=== PATIENT | male | born 1950 | race Caucasian/White ===

== ENCOUNTER 2017-03-05 08:27 | Inpatient (IN) | payer OTHER, BC ==
[~2017-03-05 08:27] MED LIST: CHLORHEXIDINE GLUC HIBICLENS 118 ML BTL TP ONE; ceFAZolin 2 GM/DEXTROSE 100 ML IV ONE
[2017-03-05] MEDS ORDERED: BACITRACIN 50,000 UNITS/10 ML SYR IRR ONE ×2 (08:31→12:55)
[2017-03-05] MEDS ORDERED: THROMBIN (BOVINE) 5,000 UNIT VIAL TP ONE (08:31)
[2017-03-05] MEDS ORDERED: BUPIVACAINE/EPI 0.5% 30 ML SDV ONE (08:31)
[2017-03-05] MEDS ORDERED: BUPIVACAINE/EPI 0.25% 30 ML SDV ONE ×2 (08:32→08:50)
[2017-03-05] MEDS ORDERED: LIDOCAINE 1% 2 ML INJ ONE (09:08)
[2017-03-05] MEDS ORDERED: CEFAZOLIN 2 GM/DEXTROSE/100 ML BAG IV ONE (09:14)
[2017-03-05] MEDS ORDERED: MIDAZOLAM 2 MG/2 ML VIAL ONE (09:26)
[2017-03-05] MEDS ORDERED: ONDANSETRON 4 MG/2 ML VIAL ONE (09:36)
[2017-03-05] MEDS ORDERED: ROCURONIUM 50 MG/5 ML VIAL ONE (09:36)
[2017-03-05] MEDS ORDERED: SUGAMMADEX SODIUM 200 MG/2 ML VIAL IVP ONE (09:36)
[2017-03-05] MEDS ORDERED: LIDOCAINE 2% 100 MG/5 ML SYR ONE (09:36)
[2017-03-05] MEDS ORDERED: DEXAMETHASONE 4 MG/ML VIAL ONE (09:36)
[2017-03-05] MEDS ORDERED: PROPOFOL 200 MG/20 ML VIAL ONE ×3 (09:37→14:11)
[2017-03-05] MEDS ORDERED: HYDROmorphONE/DILAUDID 2 MG/ML INJ ONE (09:37)
[2017-03-05] MEDS ORDERED: fentaNYL 100 MCG/2 ML INJ ONE ×2 (09:37→16:20)
[2017-03-05] MEDS ORDERED: PHENYLEPHRINE HCL 100 MCG/ML SYR ONE (09:53)
[2017-03-05] MEDS ORDERED: SURGIFLO MATRIX KIT WITH THROMBIN TP ONE (11:07)
[2017-03-05] MEDS ORDERED: LIDOCAINE 1% 5 ML SDV ID PRN (11:21)
[2017-03-05] MEDS ORDERED: LR 1,000 ML IV ONE (11:21)
[2017-03-05] MEDS ORDERED: PROPOFOL/EMULSION 500 MG/50 ML BOTTLE IV ONE (11:52)
[2017-03-05] MEDS ORDERED: MAGNESIUM HYDROXIDE 30 ML UDCUP PO PRN (11:56)
[2017-03-05] MEDS ORDERED: NALOXONE HCL 0.4 MG/ML INJ IVP PRN (11:56)
[2017-03-05] MEDS ORDERED: BISACODYL 10 MG SUPP PR PRN (11:56)
[2017-03-05] MEDS ORDERED: ONDANSETRON DISINTEGRATING 4 MG TAB PO PRN (11:56)
[2017-03-05] MEDS ORDERED: POLYETHYLENE GLYCOL 3350 17 GM PKT PO PRN (11:56)
[2017-03-05] MEDS ORDERED: LACTULOSE 20 GM/30 ML UDCUP PO PRN (11:56)
[2017-03-05] MEDS ORDERED: ONDANSETRON 4 MG/2 ML VIAL IVP PRN (11:56)
[2017-03-05] MEDS ORDERED: HYDROmorphONE/DILAUDID 1 MG/ML SYR IVP PRN (11:56)
[2017-03-05] MEDS ORDERED: DIAZEPAM 10 MG/2 ML SYR IVP PRN (11:56)
[2017-03-05] MEDS ORDERED: NALOXONE HCL 0.4 MG/ML INJ ONE (15:42)
--- NOTE | 2017-03-05 16:26 | SOAPPROG ---
SOAP Progress Note Assessment/Plan: Post Op Visit: S: Awake and alert. NAD. Pt with expected lower back pain O: AFVSS/PERRLA/EOMI no droop CN 2-12 grossly intact +lt touch 5/5 BUE/BLE = CDI A/P: 66 yo male that is s/p T10/11 and T11/12 laminectomy with durotomy -pt with expected lower back pain -pt to remain flat for 7 days -pt seen by Dr Naranjo as well -call with any questions or concerns -SDU for precedex as needed 03/05/17 16:21 ICD10 Worksheet Patient Problems: Problems Problem Status Onset Inadvertent durotomy Acute Thoracic spinal stenosis Acute Cervical radiculitis Acute Myelopathy Acute - ICD10 Problem Qualifiers (1) Thoracic spinal stenosis (2) Inadvertent durotomy
[2017-03-05] MEDS ORDERED: DEXMEDETOMIDINE HCL 400 MCG in NS 100 ML IV SCH (16:30)
[2017-03-05] MEDS ORDERED: HYDROmorphONE/DILAUDID 1 MG/ML SYR ONE (16:39)
[2017-03-05] MEDS: NS W/ 20 KCl/L 1,000 ML IV SCH ×2 (18:15→22:32)
[2017-03-05] MEDS: oxyCODONE IR 5 MG TAB PO PRN (18:19)
[2017-03-05] MEDS: METHOCARBAMOL 750 MG TAB PO PRN (18:23)
[2017-03-05] MEDS: DEXMEDETOMIDINE HCL 400 MCG in NS 100 ML IV SCH (22:32)
[2017-03-06 04:15] LABS: % IMMATURE GRANULYOCYTES 0.5 % (0.0-1.1); ABSOLUTE IMMATURE GRANULOCYTES 0.05 10^3/uL (0.00-0.10); ADD DIFF? NO; ADD MORPH? NO; ADD SCAN? NO; ATYPICAL LYMPHOCYTE FLAG 0 (0-99); FRAGMENT RBC FLAG 0 (0-99); HEMATOCRIT 38.7 % (40.0-51.0); HEMOGLOBIN 13.2 g/dL (13.7-17.5); LEFT SHIFT FLG 0 (0-99); LIPEMIA HEMOLYSIS FLAG 90 (0-99); MEAN CELL HEMOGLOBIN 30.3 pg (27.9-34.1); MEAN CELL HEMOGLOBIN CONCENTR. 34.1 g/dL (32.4-36.7); MEAN PLATELET VOLUME 10.7 fL (8.7-11.7); PLATELET CLUMPS FLAG 0 (0-99); PLATELET COUNT 186 10^3/uL (150-400); RED BLOOD CELL COUNT 4.35 10^6/uL (4.40-6.38); RED CELL DISTRIBUTION WIDTH 13.6 % (11.5-15.2)
[2017-03-06] MEDS: oxyCODONE IR 5 MG TAB PO PRN ×3 (04:37→11:50)
[2017-03-06 04:44] LABS: ANION GAP 6 mEq/L (8-16); CALCIUM 8.1 mg/dL (8.5-10.4); CARBON DIOXIDE 23 mEq/l (22-31); CHLORIDE 107 mEq/L (97-110); CREATININE 1.1 mg/dL (0.7-1.3); GLOMERULAR FILTRATION RATE > 60; GLUCOSE 113 mg/dL (70-100); POTASSIUM 5.1 mEq/L (3.5-5.2); SODIUM 136 mEq/L (134-144)
[2017-03-06] MEDS: DEXMEDETOMIDINE HCL 400 MCG in NS 100 ML IV SCH (05:00)
[2017-03-06] MEDS: ATENOLOL 100 MG TAB PO SCH ×2 (05:13→20:43)
[2017-03-06] MEDS: amLODIPine BESYLATE 5 MG TAB PO SCH ×2 (05:14→20:31)
[2017-03-06] MEDS: LISINOPRIL 40 MG TAB PO SCH ×2 (05:15→20:31)
[2017-03-06] MEDS: morphINE SR 15 MG TAB PO SCH ×3 (05:15→20:31)
[2017-03-06] MEDS: SENNOSIDES/DOCUSATE SODIUM TAB PO SCH ×3 (05:16→20:31)
[2017-03-06] MEDS: FAMOTIDINE 20 MG/NACL 50 ML IV SCH ×3 (05:16→20:32)
--- NOTE | 2017-03-06 05:47 | GOP ---
[f rep st] OPERATIVE REPORT DATE OF OPERATION: 03/05/2017 SURGEON: Kelly Naranjo MD NEUROSURGEON: Kelly Naranjo MD PARAPROFESSIONAL AIDE TEACHER: Ryan Magana PA-C PREOPERATIVE DIAGNOSIS: Multilevel lumbar and thoracic stenosis, left lower extremity pain, multile wilfredo lumbar stenosis, severe thoracic stenosis T10-11 and T11-T12 with cord compression, questionable myelomalacia, central spinal stenosis L3-4, collapse of the neural foramen L5-S1. POSTOPERATIVE DIAGNOSIS: Multilevel lumbar and thoracic stenosis, left lower extremity pain, multil evel lumbar stenosis, severe thoracic stenosis T10-11 and T11-T12 with cord compression, questionabl e myelomalacia, central spinal stenosis L3-4, collapse of the neural foramen L5-S1. PROCEDURE PERFORMED: T10-11, T11-12 laminectomy with complete removal of the lamina at each level w ith resection of dura and duraplasty at both levels, microscope. FINDINGS: ESTIMATED BLOOD LOSS: 250 cc. INDICATIONS: The patient is a 66-year-old gentleman with a prior history of an ACDF at C5-6, C6-7 b y another surgeon, and I did an adjacent segment fusion at C4-5. He presented to my office with com plaints of terrible left leg pain in L5 distribution, but he had findings throughout the lumbar spin e. He had severe stenosis at L5-S1 that could necessitate a fusion to correct. He had central sten osis at L3-4, and I thought this too needed correction, although the most impressive finding was sev ere stenosis at T11-T12 due to very large hypertrophic facet joints at that level. Another MRI was done, and it demonstrated adjacent segment severe stenosis at T10-11. He also had an area of stenos is in the upper thoracic spine. It is my surgical intent originally to do a T11-T12 and an L3-4 yudith nosis operation. My intent was to do both today. However, the new MRI was done, and because of thi s finding, I elected to include the T10-11 level. It is my intent to do both T10-11 and T11-12, as well as L3-L4, and I have discussed this with the patient's . The patient went to the operating room expecting just a T11-T12 and L3-L4 decompression. The risks of surgery including risk of CSF leak, nerve injury, continued symptoms, and possible need for additional spine surgery, including surgery at the L5-S1 level to correct the severe foraminal disease at that level was discussed. He knew that he had multilevel disease of the spine, and I was somewhat concerned that multiple levels could be contributing to his problem, but he also understoo d the importance of the thoracic stenosis and the threatening nature of this for the spinal cord, an d I thought this needed to be done. He wanted to proceed despite these risks. DESCRIPTION OF PROCEDURE: The patient was taken to the operating room, placed in the supine positio n. General anesthesia was begun. He was flipped prone on the Charan frame. Care was taken to pad all points of contact. His back was sterilely prepped and draped in the usual fashion. Localizing x-rays were taken with 4 spinal needles. We counted twice successfully up to the T10-T11 and T11-T1 2 level from the sacrum. We elected to begin the surgery there. We then anesthetized the paraspina l muscles with 0.25% Marcaine with epinephrine. He had already been sterilely prepped and draped. I made a midline incision that was about 3 cm in length above the T11 spinous process. We exposed T 10-11 and T11-12. A localizing x-ray was taken. We were in good position. We removed the T11 spin ous process and the inferior T10 spinous process, and attempted to perform an en bloc resection of t he T11 lamina. We were drilling laterally down and creating gutters on both sides. On the patient' s right-hand side, a small durotomy was created with the drill as we were drilling the bone. This w as certainly unusual. We elected to abandon that, and the operating microscope was introduced, and I increased our exposure the and went down below the lamina and opened ligamentum flavum there under the microscope and began working my way rostrally. I could not get underneath the lamina of T11, i t was completely adherent to the dura, particularly out laterally where the hypertrophic facets were . I then went to the left-hand side where I enlarged the laminotomy at T11-12 and then came to the ros tral lip of T11 and began thinning this out and then took a curette and simply tried to fracture rylan e of this central bone away from the dura, and indeed, the dura was attached to the T11 bone. It wa s part of the bone itself. There was no separate layer. This caused us to change course completely . I then enlarged the incision and went to a 6 cm incision, exposing T10-11 and T11-12 rather widel y. I went down to T12 and removed the rostral lip of T12, encountered normal dura there, and then virginia friedman working my way up in the lateral gutters bilaterally toward its the hypotrophic 11-12 facet wiley nts, and indeed laterally, the dura was completely adherent to the T11-12 facet joint complex. I di d likewise at the T10-11 interspace, where I began at the rostral T11 margin and worked my way up to the T10-11 facets, and I found exactly the same thing. On the right-hand side at T10-11, I drilled very widely, and I was able to decompress very lateral t o the thecal sac out in the facet joint itself and work my way up to the T10 pedicle and got around the area of the constriction. After I had freed laterally, I was able to take this bone and I mayda oliveros was able to successfully peel it away from the dura on the right-hand side. On the left-hand si de, I did likewise with a similar tactic at T10-11 where I worked lateral to the thecal sac, drilled out the bone and the facet joint itself, and developed a lateral breaking the bone all the way from the T11 pedicle up to the T10 pedicle. Here, however, the bone was completely adherent to the dura , all the way from the very lateral dura all the way to the midline bone. It was physically part of the dura. Even with a curette trying to separate it from the dura, this could not be done. I elected, therefore, to resect the bone with the dura in this location. I had a good lateral ana n, and I used a curette and created actually a hole in the dura with a curette and then peeled the b one and the dura off in 1 piece. This left a defect in the dura that was about 8 mm x 2 cm long, an d I repaired this with a piece of Synthecel graft. It was sutured in place. This additional suturi ng and duraplasty took 45 minutes to complete, and additional decompression time was additional 15 m inutes. This added 1 hour of time to a normally expected 1 hour time of a laminectomy at T10-11. The T11-T12 level was worse, and I went down to this level and on the right-hand side again, I drill ed very widely and began creating a fracture of the hypertrophic facet away from its bony attachment s, and I was able to successfully do this. Here, absolutely no plane could be developed between the dura and this large bone, and I simply took a pair of scissors and cut the dura cleanly to make it easier to suture, and I cut it circumferentially around this large hypertrophic facet. This left a very far lateral dural defect at T11-12. The exiting T11 nerve root was identified, and there was e nough dura to sew to just above the nerve sleeve. On the left-hand side, the problem was even worse at T11-12 where I cleared out laterally flush with the T11 and T12 pedicle, worked my way up latera lly to the T11 root. Here, there was a defect of the nerve root sleeve for the exiting T11 nerve ro ot, but here too, this was physically adherent to the dura. I even called my partner, Dr. Lexx davis, in an adjacent operating room to come look, and he could see that, indeed, the dura and the facet joints were a single unit here, there was no plane to be developed between the two. If the stenosi s were to be alleviated, we simply had to resect these, so I did likewise here. I cut the dura with scissors and removed the large hypertrophic facet off the spinal cord itself and got an excellent d ecompression, but now I was left with a very large complex dural defect, measuring about 2 cm across when one included the curvature of the dura and about 2.5 cm long. I cut a Synthecel graft. I ini tially mobilized some normal [place] dura and reconstructed the nerve root sleeve for the exiting T11 nerve root on the left-hand side and got a good closure of this with [place] dura above the 11 root. The itself and the arachnoid above the was intact, but I simply reconstructed the nerve root sleeve on the left-hand side. This solved 1 of my topological problems of my graft and allowed me to pick a relatively simple vito t shape that I did cut to fit, and I began suturing this inferiorly. There was a midline durotomy o r defect in the midline dura down at T12 level, and this was sutured in a straight fashion down the midline and then I began at that T12 level suture in my graft, and I worked my way up along the righ t-hand side of the canal and then across the dura rostrally at T11 and then down towards the nerve r oot sleeves of the T11 nerve root and laterally down the lateral gutter back to the beginning of the graft at T12. We performed Valsalva, and it was a relatively watertight closure, but was not perfe ctly watertight. There were just trace amounts of CSF leaking, and we were very happy with this rep air. There was s absolutely no leaking at any time during the surgery in absence of a Valsalva ant use the arachnoid itself had been preserved as we had resected the dura. The spinal cord and the ne rve roots were covered in arachnoid, and they, themselves, were not totally exposed. I then irrigated with antibiotic saline solution and concluded the procedure. I elected to abandon the L3-L4 procedure. If I had encountered this problem at that level, almost certainly to go that w cleo at L3-4 would require spinal fusion, and this is not something that neither nor the patient was prepared to proceed with. We corrected the severe thoracic stenosis, got a good dural repair, and t he case had taken several hours longer than expected. He was then reversed from anesthesia, flipped onto the hospital bed, extubated, and transferred to recovery room in stable condition. There were no complications. COMPLICATIONS: None. /[id number]/MODL
--- NOTE | 2017-03-06 08:51 | NEUSURGPN ---
Date of Surgery: 03/05/17 Post Op Day: 1 Assessment/Plan: Assessment: 66 year old male, S/P T10-11, T11-12 laminectomy with durotomy repair. Plan: -Patient was to get a L3-4 laminectomy as well but was delayed due to CSF leak -HOB flat for 7 days (03/12) -Precedex and REFRIGERATING TECHNICIAN ordered if needed on SDU. Currently on Precedex -PT/OT ordered but on hold due patient laying flat -Will discuss with Dr Naranjo if can start Lovenox sooner -warning signs given -Pt seen by Dr Naranjo as well -call with any questions or concerns Subjective: No new complaints or concerns. Pt with expected lower T spine. No grace/neck/ chest/abd or gu complaints. No f/c/n/v/d. Objective: AAO x 3 PERRLA FLOWER x 4 5/5 BLE CDI Neuro Check Frequency: per routine Urinary Catheter in Place: Yes Urinary Catheter Indication: Other (Use Comment) (Pt needs to lay flat for 7 days) Catheter Insertion Date: 03/05/17 - Physician Discussed Patient with DrBlas: Jose A Patient Seen by : Jose A Neurosurgery Physical Exam - Vitals, I&O, Labs I and O 03/05/17 03/06/17 03/07/17 05:59 05:59 05:59 Intake Total 2980 Output Total 600 Balance 2380 Weight 85.72 kg Intake: Oral (ml) 300 IV Intake (ml) 1950 IV Infused (ml) 730 Dexmedetomidine HCl 400 110 mcg In Ns 100 ml @ Per Protocol IV CONT AYESHA Rx#: [id number] NS W/ 20 KCl/L 1,000 ml @ 595 75 mls/hr IV CONT AYESHA Rx #:[id number] ceFAZolin 1 GM/DEXTROSE 25 50 ml @ 200 mls/hr IV Q8H AYESHA Rx#:[id number] Output: Urine (ml) 500 Catheter 500 Estimated Blood Loss (ml) 100 Vital Signs Temp Pulse Resp BP Pulse Ox 36.8 C 72 20 105/50 L 97 03/06/17 04:00 03/06/17 04:00 03/06/17 04:00 03/06/17 04:00 03/06/17 04:00 Laboratory Results 03/06/17 04:00 03/06/17 04:00 ICD10 Worksheet Patient Problems: Problems Problem Status Onset Inadvertent durotomy Acute Thoracic spinal stenosis Acute Cervical radiculitis Acute Myelopathy Acute
[2017-03-06] MEDS: NS W/ 20 KCl/L 1,000 ML IV SCH (11:42)
[2017-03-06] MEDS: METHOCARBAMOL 750 MG TAB PO PRN (16:14)
[2017-03-06] MEDS: HYDROmorphONE/DILAUDID 6 MG/30 ML PCA IV PRN (19:20)
[2017-03-07] MEDS: NS W/ 20 KCl/L 1,000 ML IV SCH ×2 (00:26→14:09)
--- NOTE | 2017-03-07 07:33 | NEUSURGPN ---
Date of Surgery: 03/05/17 Post Op Day: 2 Assessment/Plan: Assessment: 66 year old male, S/P T10-11, T11-12 laminectomy with durotomy repair. Plan: -Patient was to get a L3-4 laminectomy as well but was delayed due to CSF leak -HOB flat for 7 days (03/12) -Precedex and ASSURANCE MANAGER ordered if needed on SDU. Currently using ASSURANCE MANAGER -PT/OT ordered but on hold due patient laying flat -Will start lovenox this AM -warning signs given -Pt seen by Dr Naranjo as well -call with any questions or concerns -Patient with GERD this AM, will add PPI and tums -Discussed with RN re: continuing with Precedex for anxiety and sedation while laying flat Subjective: Patient with GERD this Am, had difficulty with sleep last PM. No HENSON, SOB. Discussed with HOME ENERGY RATER restarting Precedex for anxiety/sedation while laying flat. Objective: AAO x 3 PERRLA FLOWER x 4 5/5 BLE CDI Neuro Check Frequency: per routine Urinary Catheter in Place: No Catheter Insertion Date: 03/05/17 - Physician Discussed Patient with : Jose A Patient Seen by : Jose A Neurosurgery Physical Exam - Vitals, I&O, Labs I and O 03/06/17 03/07/17 03/08/17 05:59 05:59 05:59 Intake Total 2980 1714 Output Total 600 1450 Balance 2380 264 Weight 85.72 kg Intake: Oral (ml) 300 IV Intake (ml) 1950 IV Infused (ml) 730 1714 Dexmedetomidine HCl 400 110 mcg In Ns 100 ml @ Per Protocol IV CONT AYESHA Rx#: [id number] NS W/ 20 KCl/L 1,000 ml @ 595 1664 75 mls/hr IV CONT AYESHA Rx #:[id number] ceFAZolin 1 GM/DEXTROSE 25 50 50 ml @ 200 mls/hr IV Q8H AYESHA Rx#:[id number] Output: Urine (ml) 500 1450 Catheter 500 1450 Estimated Blood Loss (ml) 100 Other: Intake Quantity Yes Sufficient Output Comment Catheter condom cath Vital Signs Temp Pulse Resp BP Pulse Ox 36.8 C 70 16 125/81 H 98 03/07/17 06:00 03/07/17 06:00 03/07/17 06:00 03/07/17 06:00 03/07/17 06:00 Laboratory Results 03/06/17 04:00 03/06/17 04:00 ICD10 Worksheet Patient Problems: Problems Problem Status Onset Inadvertent durotomy Acute Thoracic spinal stenosis Acute Cervical radiculitis Acute Myelopathy Acute
[2017-03-07] MEDS: ENOXAPARIN 40 MG/0.4 ML SYR SC SCH (09:25)
[2017-03-07] MEDS: PANTOPRAZOLE SODIUM 40 MG TAB PO SCH (09:25)
[2017-03-07] MEDS: FAMOTIDINE 20 MG/NACL 50 ML IV SCH (09:25)
[2017-03-07] MEDS: morphINE SR 15 MG TAB PO SCH ×2 (09:25→21:59)
[2017-03-07] MEDS: SENNOSIDES/DOCUSATE SODIUM TAB PO SCH ×2 (09:26→21:59)
--- NOTE | 2017-03-07 13:36 | GCON ---
[f rep st] CONSULTATION CRITICAL CARE CONSULTATION. DATE OF CONSULTATION: 03/07/2017 REASON FOR CONSULTATION: Intensive care unit evaluation and medical management following lumbar spi ne surgery. HISTORY: The patient is a 66-year-old with a history of previous cervical spinal surgery. He prese nted with lumbar and thoracic stenosis and radiating lower extremity pain. He had a thoracic eve ctomy with resection of the dura and duraplasty at T10/11 and T11/12. The lumbar spinal stenosis wa s not addressed with this surgery. Secondary to the dural tear he was returned to the intensive car e unit on Precedex. He is to remain flat on his back for 7 days. No drains or epidural catheters a re in place. Postoperatively, he has no complaints other than expected pain and constipation. He is having no pr oblems with his respiratory status. There is no history of heart disease. PAST MEDICAL HISTORY: Remarkable for systemic hypertension for which he takes Norvasc, lisinopril, and Tenormin. PAST SURGICAL HISTORY: Includes cervical spine surgery x2, once approximately 20 years ago and here in 2014. DRUG ALLERGIES: Hydrocodone. SOCIAL HISTORY: The patient is . He is a former smoker. Significant alcohol is denied. FAMILY HISTORY: Noncontributory. REVIEW OF SYSTEMS: Negative for underlying heart or lung disease, kidney disease, diabetes, hypothy roidism, thromboembolic disease, or other issues. PHYSICAL EXAMINATION: GENERAL: Reveals a pleasant gentleman who is slightly somnolent secondary to Precedex and pain medications. VITAL SIGNS: Blood pressure is 110/54, heart rate 67, respiratory rate 16. On 4 L saturations are 98%. He is afebrile. HEENT: Unremarkable for lymphadenopathy or thyromegaly. Mucous membranes are somewhat dry. There is no obvious jugular venous distention, no stridor. CHEST: Clear. Breath sounds are diminished at the bases. HEART: Regular in rate and rh ythm. There is a soft systolic murmur, no gallops. ABDOMEN: Somewhat distended but nontender. Shaw wel sounds are present but diminished. EXTREMITIES: Unremarkable for edema, cords, or tenderness. BACK: The back and his incision site were not examined. NEUROLOGIC: Nonfocal/intact. DATABASE: White blood cell count 11,000, hematocrit 38, platelets 186,000. Basic metabolic panel s howed a sodium of 136, potassium 5.1, BUN 24, with a creatinine of 1.1. Glucose is 113, calcium 8. 1. ASSESSMENT: 1. Status post thoracic spine surgery for spinal stenosis. 2. Dural tear/durotomy. 3. History of systemic hypertension. 4. Postoperative pain. 5. Aspiration risk. This is secondary to needing to eat flat on his back. He is having no problem s handling food or fluids at this time, but apparently does have a history of mild dysphagia. Speec h therapy is making recommendations. 6. Constipation. PLAN AND RECOMMENDATIONS: The patient will be kept in the intensive care unit. Precedex will be co ntinued as it seems to be of significant benefit. Pain control and anxiolytics will be used as nee ded. Pathology will be awaited. Laboratory will be followed. Bowel protocol will be maintained. Further plans and recommendations will be made based on his progress over the next 12-24 hours. /[id number]/MODL
[2017-03-07] MEDS: DEXMEDETOMIDINE HCL 400 MCG in NS 100 ML IV SCH (22:00)
[2017-03-07] MEDS: amLODIPine BESYLATE 5 MG TAB PO SCH (22:02)
[2017-03-07] MEDS: LISINOPRIL 40 MG TAB PO SCH (22:02)
[2017-03-07] MEDS: ATENOLOL 100 MG TAB PO SCH (22:02)
[2017-03-08] MEDS: HYDROmorphONE/DILAUDID 6 MG/30 ML PCA IV PRN (00:20)
[2017-03-08] MEDS: DEXMEDETOMIDINE HCL 400 MCG in NS 100 ML IV SCH ×3 (05:34→21:24)
[2017-03-08] MEDS: NS W/ 20 KCl/L 1,000 ML IV SCH (05:35)
[2017-03-08] MEDS: diphenhydrAMINE 25 MG CAP PO PRN (06:25)
[2017-03-08] MEDS ORDERED: ENOXAPARIN 40 MG/0.4 ML SYR SC SCH (09:00)
--- NOTE | 2017-03-08 09:10 | NEUSURGPN ---
Date of Surgery: 03/05/17 Post Op Day: 3 Assessment/Plan: Assessment: 66 year old male, S/P T10-11, T11-12 laminectomy with durotomy repair. Plan: -Patient was to get a L3-4 laminectomy as well but was delayed due to CSF leak -HOB flat for 5-7 days (03/10-03/12) -Precedex and SHOT PEEN OPERATOR ordered if needed on SDU. Currently using SHOT PEEN OPERATOR -PT/OT ordered but on hold due patient laying flat -Lovenox started 03/07 -warning signs given -Pt seen by Dr Naranjo as well -call with any questions or concerns -Discussed with RN re: continuing with Precedex for anxiety and sedation while laying flat Subjective: No new complaints per RN. Patient stable. Objective: AAO x 3 PERRLA FLOWER x 4 5/5 BLE CDI Neuro Check Frequency: per routine Urinary Catheter in Place: Yes Urinary Catheter Indication: Other (Use Comment) (patient laying flat, bedrest) Catheter Insertion Date: 03/05/17 - Physician Discussed Patient with : Jose A Patient Seen by : Jose A Neurosurgery Physical Exam - Vitals, I&O, Labs I and O 03/07/17 03/08/17 03/09/17 05:59 05:59 05:59 Intake Total 1714 3692 Output Total 1450 1600 Balance 264 2092 Intake: Oral (ml) 1560 IV Infused (ml) 1714 2132 Dexmedetomidine HCl 400 282 mcg In Ns 100 ml @ Per Protocol IV CONT AYESHA Rx#: [id number] NS W/ 20 KCl/L 1,000 ml @ 1664 1850 75 mls/hr IV CONT AYESHA Rx #:[id number] ceFAZolin 1 GM/DEXTROSE 50 50 ml @ 200 mls/hr IV Q8H AYESHA Rx#:[id number] Output: Urine (ml) 1450 1600 Catheter 1450 1600 Other: Intake Quantity Yes Sufficient Output Comment Catheter condom cath Vital Signs Temp Pulse Resp BP Pulse Ox 36.9 C 72 16 110/59 L 94 03/08/17 07:57 03/08/17 07:57 03/08/17 07:57 03/08/17 07:57 03/08/17 07:57 Laboratory Results 03/06/17 04:00 03/06/17 04:00 ICD10 Worksheet Patient Problems: Problems Problem Status Onset Inadvertent durotomy Acute Thoracic spinal stenosis Acute Cervical radiculitis Acute Myelopathy Acute
[2017-03-08] MEDS: ENOXAPARIN 40 MG/0.4 ML SYR SC SCH (09:54)
[2017-03-08] MEDS: PANTOPRAZOLE SODIUM 40 MG TAB PO SCH (09:54)
[2017-03-08] MEDS: morphINE SR 15 MG TAB PO SCH ×2 (09:54→21:14)
[2017-03-08] MEDS: SENNOSIDES/DOCUSATE SODIUM TAB PO SCH ×2 (09:55→21:14)
--- NOTE | 2017-03-08 13:18 | PDINTPN ---
Medical Billing Assistant Progress Note Assessment/Plan: Assessment: Status post thoracic spine surgery with dural tear. Strict bed rest... Doing okay, but generally uncomfortable. On Precedex and TRUCK BRACER. Per Neurosurgery. Nutrition: Eating, but not hungry at this point. No evidence of aspiration clinically. Systemic hypertension. On home medications with good control blood pressure. Constipation: On bowel protocol but nothing yet. Will try lactulose which is on his Mar. DVT prophylaxis: Lovenox Plan: Continue care in the intensive care unit. Continue Precedex and TRUCK BRACER. Encourage oral intake. Continue other medications. Continue to work on constipation. Lactulose today. Subjective: Miserable secondary to bed rest. Pain: some as expected, but appropriately controlled. Denies aspiration, but not hungry, not eating much. No bowel movement yet. Objective: Vital Signs Temp Pulse Resp BP Pulse Ox 36.9 C 82 18 119/67 88 L 03/08/17 07:57 03/08/17 12:08 03/08/17 12:08 03/08/17 12:08 03/08/17 12:08 Laboratory Results 03/06/17 04:00 03/06/17 04:00 03/07/17 03/08/17 03/09/17 05:59 05:59 05:59 Intake Total 1714 3692 Output Total 1450 1600 500 Balance 264 2092 -500 Physical Exam - Physical Exam General Appearance: other (Appears uncomfortable. Lightly sedated. Appropriate , arousable and responsive.) EENT: PERRL/EOMI, other (Nasal cannula at 3 L) Neck: normal inspection Respiratory: lungs clear (Anteriorly), decreased breath sounds (At bases), No rales, No rhonchi Cardiac/Chest: regular rate, rhythm Abdomen: distended, No normal bowel sounds (Decreased bowel sounds, present), No non-tender (Mild tenderness) Male Genitalia: other (Condom catheter in place) Skin: normal color, warm/dry Extremities: No pedal edema Neuro/Psych: no motor/sensory deficits, No cognition abnormalities ICD10 Worksheet Patient Problems: Problems Problem Status Onset Cervical radiculitis Acute Myelopathy Acute Thoracic spinal stenosis Acute Inadvertent durotomy Acute
[2017-03-08] MEDS: ACETAMINOPHEN 325 MG TAB PO PRN (21:14)
[2017-03-08] MEDS: ATENOLOL 100 MG TAB PO SCH (21:14)
[2017-03-08] MEDS: LISINOPRIL 40 MG TAB PO SCH ×2 (21:14→22:43)
[2017-03-08] MEDS: amLODIPine BESYLATE 5 MG TAB PO SCH ×2 (21:15→22:43)
[2017-03-08] MEDS: METHOCARBAMOL 750 MG TAB PO PRN (21:23)
[2017-03-09] MEDS: ACETAMINOPHEN 325 MG TAB PO PRN (02:46)
[2017-03-09] MEDS: diphenhydrAMINE 25 MG CAP PO PRN (02:47)
[2017-03-09] MEDS: DEXMEDETOMIDINE HCL 400 MCG in NS 100 ML IV SCH ×2 (03:27→06:08)
[2017-03-09] MEDS: DIAZEPAM 5 MG TAB PO PRN ×4 (06:08→23:56)
[2017-03-09] MEDS: NS W/ 20 KCl/L 1,000 ML IV SCH (06:09)
--- NOTE | 2017-03-09 09:28 | NEUSURGPN ---
Date of Surgery: 03/05/17 Post Op Day: 4 Assessment/Plan: Assessment: 66 year old male, S/P T10-11, T11-12 laminectomy with durotomy repair. Plan: -Patient was to get a L3-4 laminectomy as well but was delayed due to CSF leak -Begin to raise HOB 10 degress Q1hour until 50 degrees, then oob to chair if tolerated with no headaches -Wean off Precedex Currently using PHOTOENGRAVING PROOFER -If off Precedex and tolerating OOB, may transfer to floor later today -PT/OT ordered -Lovenox started 03/07 -warning signs given -call with any questions or concerns Subjective: Patient uncomfortable due to laying flat. Disoriented per night RN. Not much of an appetite but is passing gas. Patient has back pain, no leg pain. Objective: AAO x 3 PERRLA FLOWER x 4 5/5 BLE CDI Neuro Check Frequency: per routine Urinary Catheter in Place: No Catheter Insertion Date: 03/05/17 - Physician Discussed Patient with : Jose A (Dicussed advancing activity with Dr Naranjo) Neurosurgery Physical Exam - Vitals, I&O, Labs I and O 03/08/17 03/09/17 03/10/17 05:59 05:59 05:59 Intake Total 3692 4103 Output Total 1600 4450 Balance 2092 -347 Intake: Oral (ml) 1560 2000 IV Infused (ml) 2132 2103 Dexmedetomidine HCl 400 282 346 mcg In Ns 100 ml @ Per Protocol IV CONT AYESHA Rx#: [id number] NS W/ 20 KCl/L 1,000 ml @ 1850 1757 75 mls/hr IV CONT AYESHA Rx #:[id number] Output: Urine (ml) 1600 4450 Catheter 1600 4450 Vital Signs Temp Pulse Resp BP Pulse Ox 36.7 C 72 20 98/57 L 93 03/09/17 04:00 03/09/17 06:00 03/09/17 06:00 03/09/17 06:00 03/09/17 06:00 Laboratory Results 03/06/17 04:00 03/06/17 04:00 ICD10 Worksheet Patient Problems: Problems Problem Status Onset Inadvertent durotomy Acute Thoracic spinal stenosis Acute Cervical radiculitis Acute Myelopathy Acute
[2017-03-09] MEDS: morphINE SR 15 MG TAB PO SCH ×2 (10:20→20:43)
[2017-03-09] MEDS: SENNOSIDES/DOCUSATE SODIUM TAB PO SCH ×3 (10:20→20:43)
[2017-03-09] MEDS: PANTOPRAZOLE SODIUM 40 MG TAB PO SCH (10:21)
[2017-03-09] MEDS: oxyCODONE IR 5 MG TAB PO PRN ×3 (10:21→17:14)
[2017-03-09] MEDS: METHOCARBAMOL 750 MG TAB PO PRN (10:21)
[2017-03-09] MEDS: ENOXAPARIN 40 MG/0.4 ML SYR SC SCH (10:21)
--- NOTE | 2017-03-09 12:46 | PDINTPN ---
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 Strict bed rest has ended. Progressive elevation of head of bed ordered and up to chair later if tolerated, per Neurosurgery. Nutrition: Eating. No evidence of aspiration clinically. Systemic hypertension. On home medications with good control blood pressure. Constipation: On bowel protocol, will continue. Positive BM. DVT prophylaxis: Lovenox Plan: Continue care in the intensive care unit. D/C Precedex and TELETYPESETTER. Encourage oral intake. Continue other medications. Recheck laboratory values tomorrow. Subjective: Some confusion earlier today but much better off medications. Now able to start to sit up gradually. Patient feels better overall. Not a lot of pain. Objective: Vital Signs Temp Pulse Resp BP Pulse Ox 37.1 C 86 19 136/65 H 96 03/09/17 11:51 03/09/17 11:51 03/09/17 11:51 03/09/17 11:51 03/09/17 11:51 Laboratory Results 03/06/17 04:00 03/06/17 04:00 03/08/17 03/09/17 03/10/17 05:59 05:59 05:59 Intake Total 3692 4103 Output Total 1600 1440 650 Balance 3829 -393 -746 Physical Exam - Physical Exam General Appearance: other (Mildly sedated, arousable, responsive, appropriate) EENT: PERRL/EOMI, other (Nasal cannula at 2 L) Neck: normal inspection Respiratory: lungs clear, decreased breath sounds Cardiac/Chest: regular rate, rhythm Abdomen: normal bowel sounds, non-tender, soft, No distended (Distension resolved. Positive BM) Male Genitalia: other (Manley catheter in place. Hopefully out tomorrow) Skin: normal color, warm/dry Extremities: No pedal edema Neuro/Psych: no motor/sensory deficits, No cognition abnormalities ICD10 Worksheet Patient Problems: Problems Problem Status Onset Cervical radiculitis Acute Myelopathy Acute Thoracic spinal stenosis Acute Inadvertent durotomy Acute
--- NOTE | 2017-03-09 16:22 | CPEKG ---
Heart Rate: 133 RR Interval: 451 P-R Interval: 148 QRSD Interval: 90 QT Interval: 312 QTC Interval: 465 P [place]: 68 QRS [place]: -4 T Wave [place]: 50 EKG Severity - BORDERLINE ECG - EKG Impression: SINUS TACHYCARDIA EKG Impression: PROBABLE LEFT ATRIAL ABNORMALITY Electronically Signed By: Diego Cruz 09-Mar-2017 16:41:18
[2017-03-09] MEDS ORDERED: METOPROLOL TARTRATE 5 MG/5 ML INJ IVP ONE (16:30)
[2017-03-09 18:25] LABS: % IMMATURE GRANULYOCYTES 0.4 % (0.0-1.1); ABSOLUTE IMMATURE GRANULOCYTES 0.05 10^3/uL (0.00-0.10); ADD DIFF? NO; ADD MORPH? NO; ADD SCAN? NO; ATYPICAL LYMPHOCYTE FLAG 0 (0-99); FRAGMENT RBC FLAG 0 (0-99); HEMATOCRIT 39.3 % (40.0-51.0); HEMOGLOBIN 14.1 g/dL (13.7-17.5); LEFT SHIFT FLG 10 (0-99); LIPEMIA HEMOLYSIS FLAG 90 (0-99); MEAN CELL HEMOGLOBIN 30.5 pg (27.9-34.1); MEAN CELL HEMOGLOBIN CONCENTR. 35.9 g/dL (32.4-36.7); MEAN CELL VOLUME 85.1 fL (81.5-99.8); MEAN PLATELET VOLUME 10.4 fL (8.7-11.7); PLATELET CLUMPS FLAG 0 (0-99); PLATELET COUNT 272 10^3/uL (150-400); RED BLOOD CELL COUNT 4.62 10^6/uL (4.40-6.38); RED CELL DISTRIBUTION WIDTH 12.6 % (11.5-15.2)
[2017-03-09 18:49] LABS: ANION GAP 13 mEq/L (8-16); CALCIUM 8.4 mg/dL (8.5-10.4); CARBON DIOXIDE 20 mEq/l (22-31); CHLORIDE 96 mEq/L (97-110); CREATININE 0.8 mg/dL (0.7-1.3); GLOMERULAR FILTRATION RATE > 60; GLUCOSE 146 mg/dL (70-100); MAGNESIUM 1.7 mg/dL (1.6-2.3); POTASSIUM 4.1 mEq/L (3.5-5.2); SODIUM 129 mEq/L (134-144)
[2017-03-09] MEDS ORDERED: DIAZEPAM 5 MG TAB PO ONE ×2 (20:30→21:00)
[2017-03-09] MEDS: LISINOPRIL 40 MG TAB PO SCH (20:43)
[2017-03-09] MEDS: SODIUM CHLORIDE 1,000 MG TAB PO SCH (20:43)
[2017-03-09] MEDS: ATENOLOL 100 MG TAB PO SCH (20:43)
[2017-03-09] MEDS: amLODIPine BESYLATE 5 MG TAB PO SCH (20:44)
[2017-03-10] MEDS: diphenhydrAMINE 25 MG CAP PO PRN (04:01)
[2017-03-10] MEDS: CALCIUM CARBONATE 500 MG CHEWABLE TAB PO PRN (04:01)
[2017-03-10] MEDS: PANTOPRAZOLE SODIUM 40 MG TAB PO SCH (08:22)
[2017-03-10] MEDS: ENOXAPARIN 40 MG/0.4 ML SYR SC SCH (08:22)
[2017-03-10] MEDS: DIAZEPAM 5 MG TAB PO PRN (08:22)
[2017-03-10] MEDS: morphINE SR 15 MG TAB PO SCH ×2 (08:22→22:01)
[2017-03-10] MEDS: SODIUM CHLORIDE 1,000 MG TAB PO SCH ×4 (08:23→22:11)
[2017-03-10] MEDS: SENNOSIDES/DOCUSATE SODIUM TAB PO SCH ×2 (08:31→22:01)
[2017-03-10] MEDS: TAMSULOSIN HCL 0.4 MG CAP PO SCH (11:30)
--- NOTE | 2017-03-10 12:11 | PDINTPN ---
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 Doing well. No longer at bed rest. Nutrition: Eating. No swallowing problems. Systemic hypertension. On home medications with good control blood pressure. Tachycardia: Had a rapid sinus tachycardia with ectopy last night, probably related to pain, volume status and holding his usual beta ben. Fine now. Constipation: Resolved. On bowel protocol. Positive BM Urinary retention: Required straight catheterization. I will put him on Flomax. Likely has prostatic hypertrophy which has become a problem in the hospital related to bed rest and medications. Outpatient follow-up indicated. DVT prophylaxis: Lovenox Plan: Continue postoperative care per Neurosurgery. Can transfer to a medical- surgical bed today. Continue medications, atenolol. Flomax started. Repeat bladder scan and p.r.n. straight cath as needed. Subjective: Doing well, feels better, not much back pain. No shortness of breath, no chest pain. Needed straight catheterization secondary to urinary retention of greater than 1 L Objective: Vital Signs Temp Pulse Resp BP Pulse Ox 36.6 C 84 22 H 142/72 H 98 03/10/17 07:41 03/10/17 07:41 03/10/17 07:41 03/10/17 07:41 03/10/17 07:41 Laboratory Results 03/09/17 18:15 03/10/17 04:21 03/09/17 03/10/17 03/11/17 05:59 05:59 05:59 Intake Total 4103 3205 Output Total 4450 1250 1300 Balance -347 1955 -1300 Physical Exam - Physical Exam General Appearance: alert, no apparent distress, other (In chair) EENT: PERRL/EOMI, other (On 2 L of oxygen, moving to room air.) Neck: normal inspection Respiratory: lungs clear, decreased breath sounds Cardiac/Chest: regular rate, rhythm Abdomen: normal bowel sounds, non-tender, soft Back: Other (Not examine comma dressed) Skin: normal color, warm/dry Extremities: No pedal edema Neuro/Psych: no motor/sensory deficits, No cognition abnormalities ICD10 Worksheet Patient Problems: Problems Problem Status Onset Cervical radiculitis Acute Myelopathy Acute Thoracic spinal stenosis Acute Inadvertent durotomy Acute
--- NOTE | 2017-03-10 14:04 | SOAPPROG ---
SOAP Progress Note Assessment/Plan: Assessment: doing better will transfer to floor transition to rehab on sunday. Plan: 03/10/17 14:04 Subjective: Doing better and better. sitting in a chair was finally able to empty his bladder Objective: Vital Signs Temp Pulse Resp BP Pulse Ox 36.6 C 84 22 H 142/72 H 98 03/10/17 07:41 03/10/17 07:41 03/10/17 07:41 03/10/17 07:41 03/10/17 07:41 Laboratory Results 03/09/17 18:15 03/10/17 04:21 03/09/17 03/10/17 03/11/17 05:59 05:59 05:59 Intake Total 4103 3205 Output Total 4450 1250 1300 Balance -347 1955 -1300 maew inc: cdi. Some eschar of central incision. no swelling at lami site. ICD10 Worksheet Patient Problems: Problems Problem Status Onset Inadvertent durotomy Acute Thoracic spinal stenosis Acute Cervical radiculitis Acute Myelopathy Acute
[2017-03-10] MEDS: amLODIPine BESYLATE 5 MG TAB PO SCH (22:01)
[2017-03-10] MEDS: ATENOLOL 100 MG TAB PO SCH (22:01)
[2017-03-10] MEDS: LISINOPRIL 40 MG TAB PO SCH (22:02)
[2017-03-11] MEDS: CALCIUM CARBONATE 500 MG CHEWABLE TAB PO PRN ×2 (00:05→20:19)
[2017-03-11] MEDS: ACETAMINOPHEN 325 MG TAB PO PRN (00:05)
[2017-03-11] MEDS: ENOXAPARIN 40 MG/0.4 ML SYR SC SCH (07:56)
[2017-03-11] MEDS: morphINE SR 15 MG TAB PO SCH ×2 (07:56→20:19)
[2017-03-11] MEDS: PANTOPRAZOLE SODIUM 40 MG TAB PO SCH (07:56)
[2017-03-11] MEDS: TAMSULOSIN HCL 0.4 MG CAP PO SCH (07:56)
[2017-03-11] MEDS: SODIUM CHLORIDE 1,000 MG TAB PO SCH ×3 (07:58→20:22)
[2017-03-11] MEDS: SENNOSIDES/DOCUSATE SODIUM TAB PO SCH ×2 (07:58→20:19)
--- NOTE | 2017-03-11 12:06 | SOAPPROG ---
SOAP Progress Note Assessment/Plan: Assessment: 66 yo male s;p Lami at T10/11 and 11/12 with durotomy and repair. L3/4 lami aborted sitting up in chair, no HENSON Doing fine has miller in place Plan: CPM, OK for floor 03/11/17 12:04 Subjective: out of bed in chair, no new issues. Miller in place denies new weakness ambulates w walker Objective: Vital Signs Temp Pulse Resp BP Pulse Ox 36.6 C 73 14 124/63 H 94 03/11/17 08:00 03/11/17 08:00 03/11/17 08:00 03/11/17 08:00 03/11/17 08:00 Laboratory Results 03/09/17 18:15 03/10/17 04:21 03/10/17 03/11/17 03/12/17 05:59 05:59 05:59 Intake Total 3205 1200 Output Total 1250 2400 Balance 1955 -1200 NEURO:] HANKINS, sens +LT Incision: CDI, no drainage ICD10 Worksheet Patient Problems: Problems Problem Status Onset Inadvertent durotomy Acute Thoracic spinal stenosis Acute Cervical radiculitis Acute Myelopathy Acute
[2017-03-11] MEDS: amLODIPine BESYLATE 5 MG TAB PO SCH (20:18)
[2017-03-11] MEDS: LISINOPRIL 40 MG TAB PO SCH (20:18)
[2017-03-11] MEDS: ATENOLOL 100 MG TAB PO SCH (20:18)
[2017-03-11 23:59] VITALS: BP 131/81; PULSE 78; RESP 16; O2SAT 97
[2017-03-12] MEDS: ENOXAPARIN 40 MG/0.4 ML SYR SC SCH (09:05)
[2017-03-12] MEDS: TAMSULOSIN HCL 0.4 MG CAP PO SCH (09:07)
[2017-03-12] MEDS: SODIUM CHLORIDE 1,000 MG TAB PO SCH ×2 (09:07→16:13)
[2017-03-12] MEDS: morphINE SR 15 MG TAB PO SCH (09:07)
[2017-03-12] MEDS: PANTOPRAZOLE SODIUM 40 MG TAB PO SCH (09:07)
[2017-03-12] MEDS: SENNOSIDES/DOCUSATE SODIUM TAB PO SCH (09:07)
--- NOTE | 2017-03-12 09:59 | NEUSURGPN ---
Date of Surgery: 03/05/17 Post Op Day: 7 Assessment/Plan: Assessment: 66 year old male, S/P T10-11, T11-12 laminectomy with durotomy repair. Plan: -Patient was to get a L3-4 laminectomy as well but was delayed due to CSF leak -Possible dc to rehab/[facility] today or tomorrow pending urinary retention -PT/OT -call with any questions or concerns Subjective: out of bed in chair, no new issues denies new weakness patient feels he is gaining his appetite back and has been passing gas expected surgical incisional pain, denies any BLE symptoms pain controlled with PO meds has not been able to urinate since miller removed would like to go to [facility] Objective: inc: cdi. Some eschar of central incision. Sutures in place no swelling at lami site. AAO x 3 PERRLA FLOWER x 4 5/5 BLE Neuro Check Frequency: per routine Urinary Catheter in Place: No Catheter Insertion Date: 03/11/17 - Physician Discussed Patient with : Jose A Patient Seen by : Jose A Neurosurgery Physical Exam - Vitals, I&O, Labs I and O 03/11/17 03/12/17 03/13/17 05:59 05:59 05:59 Intake Total 1200 1180 Output Total 2400 800 Balance -1200 380 Intake: Oral (ml) 1200 1180 Output: Urine (ml) 2400 800 Catheter 2400 300 Diapers/Briefs 500 Other: Intake Quantity Yes Sufficient Output Comment Diapers/Briefs MD notified of scan and failure to void wishes to hold on cath until >500cc Number of Voids Diapers/Briefs 2 Bladder Scan Volume (ml) Diapers/Briefs 380 Vital Signs Temp Pulse Resp BP Pulse Ox 37.1 C 78 16 131/81 H 97 03/11/17 23:58 03/11/17 23:58 03/11/17 23:58 03/11/17 23:58 03/11/17 23:58 Laboratory Results 03/09/17 18:15 03/10/17 04:21 ICD10 Worksheet Patient Problems: Problems Problem Status Onset Inadvertent durotomy Acute Thoracic spinal stenosis Acute Cervical radiculitis Acute Myelopathy Acute
[2017-03-12 11:16] VITALS: TEMP 99.2
--- NOTE | 2017-03-12 13:18 | PDIAF ---
- Diagnosis Diagnosis: Status post T10-T11, T11-12 with durotomy repair with grafts Code Status: Full Code - Medication Management Discharge Medications: Medications to Continue on Transfer Atenolol [Tenormin 100 mg (*)] 100 mg PO HS 04/07/15 [Last Taken 03/04/17 21:00] Lisinopril [Zestril 40 mg (*)] 40 mg PO HS 04/07/15 [Last Taken 03/04/17 21:00] amLODIPine BESYLATE [Norvasc 5 mg (*)] 5 mg PO HS 02/22/17 [Last Taken 03/04/17 21:00] Acetaminophen [Tylenol 325mg (*)] 325 - 650 mg PO Q4HRS PRN #0 tab 03/12/17 [ Last Taken Unknown] Calcium Carbonate [Tums 500MG (*)] 500 mg PO TID PRN #0 tab.chew 03/12/17 [Last Taken Unknown] Enoxaparin [Lovenox 40 MG (*)] 40 mg SC DAILY #7 syr 03/12/17 [Last Taken Unknown] Methocarbamol [Robaxin 750 mg (*)] 750 mg PO QID PRN #60 tab 03/12/17 [Last Taken Unknown] Sennosides/Docusate Sodium [Senokot-S] 1 - 2 tab PO BID #0 tab 03/12/17 [Last Taken Unknown] Sodium Chloride [Salt Tablet] 2,000 mg PO TID #60 tab 03/12/17 [Last Taken Unknown] Tamsulosin HCl [Flomax 0.4 MG (*)] 0.4 mg PO DAILY #10 cap 03/12/17 [Last Taken Unknown] morphINE SR [Ms Contin/Oramorph 15 mg (*)] 15 mg PO BID #20 tab 03/12/17 [Last Taken Unknown] oxyCODONE IR [Oxycodone Ir (*)] 5 mg PO Q3HRS PRN #60 tab 03/12/17 [Last Taken Unknown] Discharge Medications: Refer to the Discharge Home Medication list for PRN reason. PICC Care - Routine: N/A - Orders Services needed: Registered Nurse, Certified Auto Battery Builder, Master Plastic Battery Assembler , Physical Therapy, Occupational Therapy Oxygen: keep O2 sat >90% Diet Recommendation: no restrictions on diet Diet Texture: Regular Texture Diet Miller: Yes Wound Care Instructions: Do not submerge incision, ok to shower, do not scrub incision site Sutures/Shankar Site: Return to neurosurgery clinic next week for suture removal Activity/Weight Bearing Restrictions: No bending, twisting. No lifting more than 10 pounds. - Follow Up Care Current Providers and Referrals: DOLLY ARCE [Primary Care Provider] - Aviva Naranjo MD [Medical Doctor] - follow up in 1 week (Follow up in one week for post op and suture removal) Iglesia Trejo MD [Medical Doctor] - 3-5 days (Follow up re: miller cath)
== END 2017-03-12 16:30 | DRG 519 ==
LOC: OBSVTOIN 08:27 → F3N 08:27 → F2N 20:52
PROVIDERS: ADMIT Neurological Surgery; ATTEND Neurological Surgery
PROC: 00Q20ZZ Repair Dura Mater, Open Approach (ICD-10-PCS; principal; 2017-03-05 09:30)
PROC: 00NX0ZZ Release Thoracic Spinal Cord, Open Approach (ICD-10-PCS; principal; 2017-03-05 09:30)
PROC: 01N80ZZ Release Thoracic Nerve, Open Approach (ICD-10-PCS; principal; 2017-03-05 09:30)
PROC: 00B20ZZ Excision of Dura Mater, Open Approach (ICD-10-PCS; principal; 2017-03-05 09:30)
DX: M48.04 Spinal stenosis, thoracic region (principal); G96.11 Dural tear; G95.89 Other specified diseases of spinal cord; K59.00 Constipation, unspecified; K21.9 Gastro-esophageal reflux disease without esophagitis; I10 Essential (primary) hypertension; M48.02 Spinal stenosis, cervical region; M48.06 Spinal stenosis, lumbar region
CPT/HCPCS: 92526-GN; 92610-GN; 97116-GP; 97162-GP; 97166-GO; 97530-GO; 97535-GO; G8978-GP-CK; G8979-GP-CI; G8987-GO-CK; G8988-GO-CI; G8996-GN-CI; G8997-GN-CI; G8998-GN-CH; J0690; J1100; J1170; J1200; J1650; J2001; J2250; J2310; J2370; J2405; J2704; J3010